=== PATIENT | male | born 1945 | race American Indian/Alaskan Native ===

== ENCOUNTER 2017-01-30 11:12 | Outpatient (CLI) | payer MEDICARE ==
--- NOTE | 2017-01-31 13:29 | Vascular Lab Report ---
Right Lower Extremity Venous Duplex Study: Reason for Exam: Pain and swelling of the right lower extremity. Comments on the Right: All veins visualized are freely compressible without evidence of internal echogenicity. Flow is spontaneous and phasic throughout. No evidence of acute or chronic thrombus is seen in any of the vessels visualized. The right leg varicosities and superficial reflux noted. Consider workup for clinical venous insufficiency. Comments on the Left: A limited duplex study was done of the proximal veins of the left lower extremity. All veins visualized are freely compressible without evidence of internal echogenicity. Flow is spontaneous and phasic throughout. No evidence of acute or chronic thrombus is seen in any of the vessels visualized. Impression: No evidence of acute or chronic deep venous thrombosis in the right lower extremity.
== END 2017-01-30 11:13 | disposition home or self-care (01) ==
LOC: VAS 11:12
PROVIDERS: ATTEND Family Medicine
DX: M79.661 Pain in right lower leg (principal); M79.89 Other specified soft tissue disorders

== ENCOUNTER 2018-03-05 11:02 | Inpatient (IN) | payer MEDICARE ==
[2018-03-05] MEDS: NITRO DUR TD SCH (08:44)
[2018-03-05] MEDS ORDERED: SODIUM CHLORIDE FLUSH SYRINGE 10 ML IV PRN (11:06)
[2018-03-05] MEDS ORDERED: MORPHINE IV PRN (11:06)
[2018-03-05 14:11] LABS: Basophils % (Auto) 0.4 % (0.0-1.8); Eosinophils # (Auto) 0.1 K/mm3 (0.0-0.4); Eosinophils % (Auto) 1.6 % (0.0-4.3); Hemoglobin 14.2 gm/dl (11.8-15.2); Lymphocytes # (Auto) 2.9 K/mm3 (1.2-5.4); Lymphocytes % (Auto) 50.6 % (13.4-35.0); Mean Corpuscular HGB Conc 33 % (32-34); Mean Corpuscular Volume 93 fl (84-94); Monocytes # (Auto) 0.4 K/mm3 (0.0-0.8); Monocytes % (Auto) 7.2 % (0.0-7.3); Platelet Count 176 K/mm3 (140-440); Red Blood Count 4.62 M/mm3 (3.65-5.03); Red Cell Distribution Width 14.7 % (13.2-15.2)
[2018-03-05 14:24] LABS: INR 0.97 (0.87-1.13)
[2018-03-05 14:25] LABS: Partial Thromboplastin Time 28.8 Sec. (24.2-36.6)
[2018-03-05 14:31] LABS: Alanine Aminotransferase 31 units/L (7-56); Albumin 3.8 g/dL (3.9-5); BUN/Creatinine Ratio 11; Blood Urea Nitrogen 10 mg/dL (9-20); Calcium 8.8 mg/dL (8.4-10.2); Hemolysis Index 8; LDL Cholesterol,Direct 129 mg/dL (50-130)
[2018-03-05 14:41] LABS: Chol/HDL Ratio 3.28 %; HDL Cholesterol 53 mg/dL (40-59)
[2018-03-05] MEDS: ZESTRIL PO SCH (16:12)
[2018-03-05] MEDS: ASPIRIN PO SCH (16:12)
[2018-03-05] MEDS: LOVENOX SUB-Q SCH (16:12)
--- NOTE | 2018-03-05 17:13 | XRay Report ---
FINAL REPORT EXAM: XR CHEST 1V AP HISTORY: CHEST PAIN TECHNIQUE: Frontal chest radiograph. PRIORS: None. FINDINGS: Aortic calculi are seen. The cardiomediastinal silhouette is unremarkable. No focal consolidation. There is a small left pleural effusion. No pneumothorax. No acute osseous abnormality. IMPRESSION: Small left pleural effusion.
--- NOTE | 2018-03-05 21:42 | History and Physical Report ---
History of Present Illness Date of examination: 03/05/18 Date of admission: 03/05/18 13:36 Chief complaint: Chest pain - 1 week History of present illness: Patient is a72 y/o male with a history of hypertension who presented to my office today 03/05/18 c/o left sided chest pain, 7/10 in severity. Intermittent. No associated shortness of breath. Occasionally radiating to the left shoulder. No diaphoresis, orthopnea or PND. Was directly admitted to for further evalu ation. EKG sjowed no ischemic changes. Rather probable left atrial enlargement was noted. Serial cardiac enzymes x 2 were negative. Chest pain still persist. Medications and Allergies Allergies Allergy/AdvReac Type Severity Reaction Status Date / Time No Known Allergies Allergy Unverified 02/23/16 08:49 Active Meds: Active Medications Aspirin (Aspirin) 325 mg PO DAILY [facility] Last Admin: 03/05/18 16:12 Dose: 325 mg Documented by: Atorvastatin Calcium (Lipitor) 40 mg PO QHS [facility] Enoxaparin Sodium (Lovenox) 40 mg SUB-Q QDAY [facility] Last Admin: 03/05/18 16:12 Dose: 40 mg Documented by: Lisinopril (Zestril) 10 mg PO QDAY [facility] Last Admin: 03/05/18 16:12 Dose: 10 mg Documented by: Metoprolol Tartrate (Lopressor) 25 mg PO BID [facility] Morphine Sulfate (Morphine) 2 mg IV Q6H PRN PRN Reason: Chest Pain Nitroglycerin (Nitro Dur) 0.4 mg TD DAILY [facility] Pneumococcal Polyvalent Vaccine (Pneumovax 23) 0.5 ml IM .ONCE ONE Stop: 03/06/18 12:01 Sodium Chloride (Sodium Chloride Flush Syringe 10 Ml) 10 ml IV BID [facility] Sodium Chloride (Sodium Chloride Flush Syringe 10 Ml) 10 ml IV PRN PRN PRN Reason: LINE FLUSH Review of Systems Constitutional: no weight loss, no weight gain, no fever, no chills Ears, nose, mouth and throat: no ear pain, no ear discharge, no tinnitis, no decreased hearing, no nose pain Cardiovascular: chest pain, high blood pressure, no orthopnea, no palpitations, no dyspnea on exertion, no paroxysmal nocturnal dyspnea Respiratory: no cough, no cough with sputum, no excessive sputum, no hemoptysis Gastrointestinal: no nausea, no vomiting, no diarrhea, no change in bowel habits Genitourinary Male: no hematuria, no flank pain, no discharge, no urinary frequency, no impotence, no decreased libido, no testicular pain Rectal: no pain, no incontinence Musculoskeletal: no neck pain, no shooting arm pain, no low back pain, no shooting leg pain, no hot joints, no morning stiffness Integumentary: no rash, no pruritis, no redness, no sores Neurological: no transient paralysis, no paralysis, no weakness, no parathesias, no numbness, no tingling, no vertigo, no headaches, no migraines Exam - Constitutional Vitals: Temp Pulse Resp BP Pulse Ox 97.3 F L 63 18 151/85 94 03/05/18 20:49 03/05/18 20:49 03/05/18 20:49 03/05/18 20:49 03/05/18 20:49 General appearance: Present: no acute distress, well-nourished - EENT Eyes: Present: PERRL ENT: hearing intact, clear oral mucosa - Neck Neck: Present: supple, normal ROM - Respiratory Respiratory effort: normal Respiratory: bilateral: CTA - Cardiovascular Heart Sounds: Present: S1 & S2. Absent: rub, click - Extremities Extremities: pulses symmetrical, No edema Peripheral Pulses: within normal limits - Abdominal General gastrointestinal: Present: soft, non-tender, non-distended, normal bowel sounds - Integumentary Integumentary: Present: clear, warm, dry - Musculoskeletal Musculoskeletal: gait normal, strength equal bilaterally - Psychiatric Psychiatric: appropriate mood/affect, intact judgment & insight - Neurologic Neurologic: CNII-XII intact, moves all extremities Results - Labs CBC & Chem 7: 03/05/18 13:53 03/05/18 13:53 Labs: Abnormal lab results 03/05/18 03/05/18 Range/Units 13:53 13:53 Lymph % (Auto) 50.6 H (13.4-35.0) % Albumin 3.8 L (3.9-5) g/dL Assessment and Plan - Atypical chest pain ADmittd to Tele Serial cardiac enzymes x 2 were negative EKG showed no ischemc changes Commence Oxygen, ASA, NTG, Morphine Lexiscan Stres test in am - HTN Continue with adjusted doses of Lisinopril and metoprolol, his home meds - Obesity Counseling on diet and exercise done - DVT PPx Soniyayaox Spent 40 mins during this admission process in direct pt care, review of laboratory and radiological data as well as discussing Mx plan with pt.
[2018-03-05] MEDS: LOPRESSOR PO SCH (21:43)
[2018-03-05] MEDS: SODIUM CHLORIDE FLUSH SYRINGE 10 ML IV SCH (21:43)
[2018-03-06] MEDS ORDERED: LEXISCAN IV ONE (07:59)
--- NOTE | 2018-03-06 10:00 | Consultation ---
Medications and Allergies Allergies Allergy/AdvReac Type Severity Reaction Status Date / Time No Known Allergies Allergy Unverified 02/23/16 08:49 Active Meds: Active Medications Aspirin (Aspirin) 325 mg PO DAILY COUNT INCLUDES THE [facility] Last Admin: 03/05/18 16:12 Dose: 325 mg Documented by: Atorvastatin Calcium (Lipitor) 40 mg PO QHS COUNT INCLUDES THE [facility] Last Admin: 03/05/18 21:43 Dose: 40 mg Documented by: Enoxaparin Sodium (Lovenox) 40 mg SUB-Q QDAY COUNT INCLUDES THE [facility] Last Admin: 03/05/18 16:12 Dose: 40 mg Documented by: Lisinopril (Zestril) 10 mg PO QDAY COUNT INCLUDES THE [facility] Last Admin: 03/05/18 16:12 Dose: 10 mg Documented by: Metoprolol Tartrate (Lopressor) 25 mg PO BID COUNT INCLUDES THE [facility] Last Admin: 03/05/18 21:43 Dose: 25 mg Documented by: Morphine Sulfate (Morphine) 2 mg IV Q6H PRN PRN Reason: Chest Pain Nitroglycerin (Nitro Dur) 0.4 mg TD DAILY COUNT INCLUDES THE [facility] Last Admin: 03/05/18 08:44 Dose: Not Given Documented by: Pneumococcal Polyvalent Vaccine (Pneumovax 23) 0.5 ml IM .ONCE ONE Stop: 03/06/18 12:01 Sodium Chloride (Sodium Chloride Flush Syringe 10 Ml) 10 ml IV BID COUNT INCLUDES THE [facility] Last Admin: 03/05/18 21:43 Dose: 10 ml Documented by: Sodium Chloride (Sodium Chloride Flush Syringe 10 Ml) 10 ml IV PRN PRN PRN Reason: LINE FLUSH Exam - Constitutional Vitals: Temp Pulse Resp BP Pulse Ox 97.6 F 60 20 137/78 94 03/06/18 00:46 03/06/18 00:46 03/06/18 00:46 03/06/18 00:46 03/06/18 00:46 Results - Labs CBC & Chem 7: 03/05/18 13:53 03/05/18 13:53 Labs: Abnormal lab results 03/05/18 03/05/18 Range/Units 13:53 13:53 Lymph % (Auto) 50.6 H (13.4-35.0) % Albumin 3.8 L (3.9-5) g/dL
--- NOTE | 2018-03-06 10:09 | Progress Note ---
Assessment and Plan - Atypical chest pain Serial cardiac enzymes x 2 were negative EKG showed no ischemc changes Commence Oxygen, ASA, NTG, Morphine Lexiscan Stres test today - HTN Continue with adjusted doses of Lisinopril and metoprolol, his home meds - Obesity Counseling on diet and exercise done - DVT PPx Lovenox Disposition. D/c home today if Lexiscan stress is normal Subjective Date of service: 03/06/18 Principal diagnosis: Chest pain, HTN Interval history: Still having intermittent chest pain Objective - Constitutional Vitals: Vital Signs - 12hr 03/05/18 03/06/18 22:20 00:46 Temperature 97.6 F Pulse Rate 60 Pulse Rate [ 63 Apical] Respiratory 18 20 Rate Blood Pressure 137/78 O2 Sat by Pulse 94 94 Oximetry General appearance: Present: no acute distress, well-nourished - EENT Eyes: PERRL, EOM intact Ears: bilateral: normal - Neck Neck: supple, normal ROM - Respiratory Respiratory effort: normal Respiratory: bilateral: CTA - Breasts Breasts: normal - Cardiovascular Rhythm: regular Heart Sounds: Present: S1 & S2. Absent: gallop, rub Extremities: pulses intact, No edema, normal color, Full ROM - Gastrointestinal General gastrointestinal: Present: soft, non-tender, non-distended, normal bowel sounds - Integumentary Integumentary: clear, warm, dry - Musculoskeletal Musculoskeletal: 1, strength equal bilaterally - Neurologic Neurologic: moves all extremities - Psychiatric Psychiatric: memory intact, appropriate mood/affect, intact judgment & insight - Labs CBC & Chem 7: 03/05/18 13:53 03/05/18 13:53 Labs: Abnormal lab results 03/05/18 03/05/18 Range/Units 13:53 13:53 Lymph % (Auto) 50.6 H (13.4-35.0) % Albumin 3.8 L (3.9-5) g/dL
--- NOTE | 2018-03-06 10:39 | Discharge Summary ---
Providers - Providers Date of Admission: 03/05/18 13:36 Date of discharge: 03/06/18 Attending physician: NICKOLAS ADKINS none Primary care physician: NICKOLAS ADKINS Hospitalization Reason for admission: Chest pain Pertinent studies: Lexiscan stress test Procedures: none Hospital course: Patient is a72 y/o male with a history of hypertension who presented to my office today 03/05/18 c/o left sided chest pain, 7/10 in severity. Intermittent. No associated shortness of breath. Occasionally radiating to the left shoulder. No diaphoresis, orthopnea or PND. Was directly admitted to for further evaluation. EKG showed no ischemic changes. Rather probable left atrial enlargement was noted. Serial cardiac enzymes x 2 were negative. Chest pain still persisted. Pt on admission was commenced on oxygen, ASA, NTG and morphine. Chest pain improved. Lexiscan stress was done. Result was normal. Pt was discharge with risk modification counselling for adequate BP control an weight reduction. He is to f/u with nm in 5-7days. dischrge diagnosis included: Atypical chest pain HTN Obesity Disposition: TO HOME OR SELFCARE Time spent for discharge: 35 mins Core Measure Documentation - Palliative Care Palliative Care/ Comfort Measures: Not Applicable - Core Measures Any of the following diagnoses?: none Exam - Constitutional Vitals: Temp Pulse Resp BP Pulse Ox 97.6 F 60 20 137/78 94 03/06/18 00:46 03/06/18 00:46 03/06/18 00:46 03/06/18 00:46 03/06/18 00:46 General appearance: Present: no acute distress, well-nourished - EENT Eyes: Present: PERRL ENT: hearing intact, clear oral mucosa - Neck Neck: Present: supple, normal ROM - Respiratory Respiratory effort: normal Respiratory: bilateral: CTA - Cardiovascular Heart Sounds: Present: S1 & S2. Absent: rub, click - Extremities Extremities: pulses symmetrical, No edema Peripheral Pulses: within normal limits - Abdominal General gastrointestinal: Present: soft, non-tender, non-distended, normal bowel sounds - Integumentary Integumentary: Present: clear, warm, dry - Musculoskeletal Musculoskeletal: gait normal, strength equal bilaterally - Psychiatric Psychiatric: appropriate mood/affect, intact judgment & insight - Neurologic Neurologic: CNII-XII intact, moves all extremities Plan Activity: advance as tolerated Weight Bearing Status: Weight Bear as Tolerated Diet: low salt Follow up with: NICKOLAS ADKINS MD [Primary Care Provider] - 7 Days Prescriptions: AtorvaSTATin [Lipitor] 40 mg PO QHS #30 tablet Lisinopril [Zestril TAB] 10 mg PO QDAY #30 tablet
[2018-03-06] MEDS: LOPRESSOR PO SCH (11:15)
[2018-03-06] MEDS: ZESTRIL PO SCH (11:15)
[2018-03-06] MEDS: ASPIRIN PO SCH (11:15)
[2018-03-06] MEDS: SODIUM CHLORIDE FLUSH SYRINGE 10 ML IV SCH (11:16)
[2018-03-06] MEDS: NITRO DUR TD SCH (11:18)
[2018-03-06] MEDS: LOVENOX SUB-Q SCH (11:18)
[2018-03-06] MEDS ORDERED: PNEUMOVAX 23 IM ONE (12:00)
[2018-03-06 12:01] VITALS: BP 163/99
--- NOTE | 2018-03-06 13:18 | Treadmill Report ---
ORDERING PHYSICIAN: Chris Mac MD REASON FOR STUDY: Chest pain. IMAGING PROTOCOL: The patient received 10 mCi of Technetium 99m Tetrofosmin for resting image and 28 mCi of Technetium 99m Tetrofosmin for stress imaging. The imaging for the whole procedure was completed 30-90 minutes following the initial injection of Technetium 99m Tetrofosmin. The SPECT imaging in the 180 degree arc was performed in the right anterior oblique projection. Computerized reconstruction of the images was performed for analysis. IMAGING RESULTS: Normal cavity size from stress to rest. Normal distribution of radionuclide in the anterior, inferior, septal, and apical regions. Gated SPECT, EF 62% with no wall motion abnormality. The patient infused Lexiscan with no EKG changes. SUMMARY: 1. Negative Lexiscan EKG. 2. Normal rest and stress myocardial perfusion scan. No significant stress ischemia. No wall motion abnormality. Gated SPECT, EF 62%. JOB# [id number] AMARILIS/JAE
== END 2018-03-06 11:47 | disposition home or self-care (01) | DRG 392 ==
LOC: 4A 11:02 → UNDOADMIN 11:02 → 4A 13:36
PROVIDERS: ADMIT Family Medicine; ATTEND Family Medicine
PROC: 3E0234Z Introduction of Serum, Toxoid and Vaccine into Muscle, Percutaneous Approach (ICD-10-PCS; principal; 2018-03-06)
DX: K21.9 Gastro-esophageal reflux disease without esophagitis (principal); R07.89 Other chest pain; I10 Essential (primary) hypertension; E66.9 Obesity, unspecified; Z68.33 Body mass index [BMI] 33.0-33.9, adult; Z71.3 Dietary counseling and surveillance; Z23 Encounter for immunization
CPT/HCPCS: 36415; 71045; 78452; 80053; 80061; 83735; 84100; 84484; 85025; 85610; 85730; 90732; 93005; 93010; 93017; G0378; A9270-GY; A9502; J1650; J2785

== ENCOUNTER 2019-06-27 07:12 | Day surgery (SDC) | payer MEDICARE ==
--- NOTE | 2019-06-27 07:27 | Anesthesia Consultation ---
Anesthesia Consult and Med Hx Date of service: 06/27/19 - Airway Anesthetic Teeth Evaluation: Good ROM Head & Neck: Adequate Mental/Hyoid Distance: Adequate Mallampati Class: Class III Intubation Access Assessment: Possibly Difficult - Pre-Operative Health Status ASA Pre-Surgery Classification: ASA2 - Pulmonary Hx Smoking: No Hx Sleep Apnea: No (FIFI PRE SCREEN HIGH RISK) - Cardiovascular System Hx Hypertension: Yes (TOOK SELF OFF MEDS) Hx Coronary Artery Disease: No (high cholesterol, no meds) - Other Systems Hx Cancer: No
--- NOTE | 2019-06-27 07:28 | Anesthesia Day of Surgery ---
Anesthesia Day of Surgery - Day of Surgery Patient Examined: Yes Patient H&P Reviewed: Yes Patient is NPO: Yes
[2019-06-27] MEDS ORDERED: HYDROmorphone 1 MG/1 ML INJ ONE (07:55)
[2019-06-27] MEDS ORDERED: propofoL 200 MG/20 ML VIAL IV ONE (07:56)
[2019-06-27] MEDS ORDERED: LIDOCAINE MPF (2%) 20 MG/1 ML VIAL 5 ML ONE (07:56)
[2019-06-27] MEDS ORDERED: BUPIVACAINE-EPINEPHRINE/PF 0.25%-1:200,000 (30 ML) VIAL INFILTRATI ONE ×2 (07:59→08:00)
[2019-06-27] MEDS ORDERED: LIDOCAINE (1%) 10 MG/1 ML VIAL 20 ML MDV ONE (07:59)
[2019-06-27] MEDS ORDERED: MIDAZOLAM 2 MG/2 ML INJ IV NR (08:00)
[2019-06-27] MEDS ORDERED: FAMOTIDINE 20 MG/2 ML INJ IV NR (08:00)
[2019-06-27] MEDS ORDERED: LACTATED RINGERS 1,000 ML IV SCH (08:00)
[2019-06-27] MEDS ORDERED: ceFAZolin/STERILE WATER 2 GM/20 ML SYRINGE IV NR (08:00)
[2019-06-27] MEDS ORDERED: fentaNYL 100 MCG/2 ML INJ IV PRN (08:00)
[2019-06-27] MEDS ORDERED: SUCCINYLCHOLINE CHLORIDE 200 MG/10 ML INJ MDV ONE (08:01)
[2019-06-27] MEDS ORDERED: MIDAZOLAM 2 MG/2 ML INJ ONE (08:10)
--- NOTE | 2019-06-27 09:20 | Post Operative Note ---
Date of procedure: 06/27/19 Pre-op diagnosis: left large hydrocele Post-op diagnosis: other (with large spermatocele) Findings: as above Procedure: sig scarring spermatocele Anesthesia: FELICITASA Surgeon: YARELIS GUTIERREZ Estimated blood loss: minimal Pathology: list (epidid sac) Specimen disposition: to lab Condition: stable Disposition: PACU
--- NOTE | 2019-06-27 09:22 | Discharge Summary ---
Short Stay Discharge Plan Activity: other (no straining ) Weight Bearing Status: Full Weight Bearing Diet: low fat, low cholesterol, low salt Wound: change dressing Special Instructions: other (ice x 24 hrs ) Follow up with: NICKOLAS ADKINS MD [Primary Care Provider] - 7 Days YARELIS GUTIERREZ MD [Staff Physician] - 3 Days
--- NOTE | 2019-06-27 10:28 | Operative Report ---
PREOPERATIVE DIAGNOSIS: Large fluid collection left scrotum consistent with hydrocele. POSTOPERATIVE DIAGNOSES: Hydrocele and spermatocele very large. PROCEDURE: Partial epididymectomy, spermatocelectomy, hydrocelectomy. SURGEON: Brice Garner MD ANESTHESIA: General. FINDINGS: This is a gentleman with very large fluid collection in the left scrotum. It looked like a hydrocele. He now presents for treatment. DESCRIPTION OF PROCEDURE: The patient was brought to the operating table. Following induction of anesthesia, an oblique incision made over the left hemiscrotum. The fluid filled sac was delivered and dissected free. The sac was opened. There was a moderate amount of hydrocele, but in addition there was a large spermatocele which was 3 times the size of the testis. This was dissected free with the tail of the epididymis. The epididymis was partially divided and sent with the specimen as well as the spermatocele sac. The patient tolerated the procedure well. The raw surfaces were sutured with 3-0 chromic. Hemostasis was excellent. A half inch Interior drain was placed in the dependent portion. Closure was accomplished with 3-0 chromic and 2-0 chromic. The patient tolerated the procedure well and brought to recovery room, minimal blood loss, in stable condition. JOB# [id number] МАРИНА/JAE
[2019-06-27] MEDS ORDERED: HYDROcodone/ACETAMINOPHEN 5-325 MG TAB PO PRN (11:00)
--- NOTE | 2019-06-27 12:07 | Post Anesthesia Evaluation ---
- Post Anesthesia Evaluation Patient Participated: Yes Airway Patent: Yes Stable Respiratory Function: Yes Nausea/Vomiting: No Temp > 96.8F: Yes Pain Manageable: Yes Adequeate Hydration: Yes Anesthesia Complications: No
[2019-06-27 12:22] VITALS: BP 150/90
== END 2019-06-27 07:13 | disposition home or self-care (01) ==
LOC: OR 07:12
PROVIDERS: ATTEND Urology
DX: N43.2 Other hydrocele (principal); N50.89 Other specified disorders of the male genital organs; I10 Essential (primary) hypertension; E78.00 Pure hypercholesterolemia, unspecified; Z98.890 Other specified postprocedural states
CPT/HCPCS: 55040; 88302; J0690; J1170; J2250; J2704; J7120; J0330

== ENCOUNTER 2019-08-25 11:51 | Outpatient (CLI) | payer MEDICARE ==
--- NOTE | 2019-08-25 14:28 | Vascular Lab Report ---
DUPLEX DOPPLER LOWER EXTREMITY VEINS, RIGHT INDICATION: CHRONIC VENOUS HYPERTENSION WITH ULCER OF RIGHT LOWER EXT. TECHNIQUE: Duplex doppler imaging was performed through the veins of the right lower extremity using venous compression and other maneuvers. COMPARISON: No relevant prior imaging study available. FINDINGS: Right Common femoral vein: Negative. Right Superficial femoral vein: Negative. Right Popliteal vein: Negative. Right Calf veins: Negative. Additional findings: Patent varicose veins are noted in the right calf.. IMPRESSION: No sonographic evidence for DVT in the right lower extremity. Signer Name: Monster Kumar Jr, MD Signed: 08/25/2019 2:23 PM Workstation Name: [id number]
== END 2019-08-25 11:52 | disposition home or self-care (01) ==
LOC: VAS 11:51
PROVIDERS: ATTEND Surgery
DX: I87.311 Chronic venous hypertension (idiopathic) with ulcer of right lower extremity (principal)

== ENCOUNTER 2019-09-04 11:11 | Outpatient (CLI) | payer MEDICARE ==
[2019-09-04] MEDS ORDERED: LIDOCAINE (4%) 40 MG/ML TOPICAL SOLN 50 ML BOTTLE TP ONE (13:32)
== END 2019-09-04 11:12 | disposition home or self-care (01) ==
LOC: WOUND 11:11
PROVIDERS: ATTEND Surgery
DX: I87.311 Chronic venous hypertension (idiopathic) with ulcer of right lower extremity (principal); L97.812 Non-pressure chronic ulcer of other part of right lower leg with fat layer exposed

== ENCOUNTER 2019-09-10 13:27 | Outpatient (CLI) | payer MEDICARE ==
[2019-09-10] MEDS ORDERED: LIDOCAINE (4%) 40 MG/ML TOPICAL SOLN 50 ML BOTTLE TP ONE (13:31)
== END 2019-09-10 13:28 | disposition home or self-care (01) ==
LOC: WOUND 13:27
PROVIDERS: ATTEND Surgery
DX: I87.311 Chronic venous hypertension (idiopathic) with ulcer of right lower extremity (principal); L97.812 Non-pressure chronic ulcer of other part of right lower leg with fat layer exposed

== ENCOUNTER 2019-09-17 13:29 | Outpatient (CLI) | payer MEDICARE ==
[2019-09-17] MEDS ORDERED: LIDOCAINE (4%) 40 MG/ML TOPICAL SOLN 50 ML BOTTLE TP ONE (13:40)
== END 2019-09-17 13:30 | disposition home or self-care (01) ==
LOC: WOUND 13:29
PROVIDERS: ATTEND Surgery
DX: I87.311 Chronic venous hypertension (idiopathic) with ulcer of right lower extremity (principal); L97.812 Non-pressure chronic ulcer of other part of right lower leg with fat layer exposed
CPT/HCPCS: 99214; G0463

== ENCOUNTER 2019-10-15 13:35 | Outpatient (CLI) | payer MEDICARE ==
[2019-10-15] MEDS ORDERED: VITAMIN A & D OINT 56.7 GM TP SCH (14:00)
== END 2019-10-15 13:36 | disposition home or self-care (01) ==
LOC: WOUND 13:35
PROVIDERS: ATTEND Surgery
DX: I87.311 Chronic venous hypertension (idiopathic) with ulcer of right lower extremity (principal); L97.812 Non-pressure chronic ulcer of other part of right lower leg with fat layer exposed
CPT/HCPCS: 99214; A6250; G0463

== ENCOUNTER 2019-10-23 10:02 | Outpatient (CLI) | payer MEDICARE ==
[2019-10-23] MEDS ORDERED: VITAMIN A & D OINT 56.7 GM TP SCH (11:00)
== END 2019-10-23 10:03 | disposition home or self-care (01) ==
LOC: WOUND 10:02
PROVIDERS: ATTEND Surgery
DX: I87.311 Chronic venous hypertension (idiopathic) with ulcer of right lower extremity (principal); L97.818 Non-pressure chronic ulcer of other part of right lower leg with other specified severity
CPT/HCPCS: 99213; G0463

== ENCOUNTER 2019-12-16 11:09 | Outpatient (CLI) | payer MEDICARE ==
--- NOTE | 2019-12-16 12:24 | XRay Report ---
LUMBAR SPINE 3 VIEWS INDICATION / CLINICAL INFORMATION: LUMBAR BACK PAIN. COMPARISON: None available. FINDINGS: Moderate degenerative change at the thoracolumbar junction. Very mild anterolisthesis of L4 on L5. No other significant skeletal abnormality Signer Name: Brian Larson MD FACR Signed: 12/16/2019 12:19 PM Workstation Name: [id number]
== END 2019-12-16 11:10 | disposition home or self-care (01) ==
LOC: XRAY 11:09
PROVIDERS: ATTEND Family Medicine
DX: M43.16 Spondylolisthesis, lumbar region (principal); M47.815 Spondylosis without myelopathy or radiculopathy, thoracolumbar region
CPT/HCPCS: 72100

== ENCOUNTER 2021-04-25 11:00 | Outpatient (CLI) | payer MEDICARE | END 2021-04-25 11:01 | disposition home or self-care (01) | LOC: SLR 11:00 | PROVIDERS: ATTEND Internal Medicine | DX: G47.30 Sleep apnea, unspecified (principal) | CPT/HCPCS: 95811 ==